=== PATIENT | female | born 1965 | race Caucasian/White ===

== ENCOUNTER → 2017-06-17 | Outpatient (CLI) | payer OTHER ==
[~2017-06-17] MED LIST: Z.0.NO CURRENT MEDS
--- NOTE | 2017-06-17 15:14 | RADRPT ---
EXAM DATE/TIME: 06/17/2017 14:37 [place] COMPARISON: No previous studies available for comparison. INDICATIONS : Evaluate for pneumonia, pneumothorax, or communicable disease. Pre-op hysterectomy MEDICAL HISTORY : None. SURGICAL HISTORY : None. ENCOUNTER: Initial ACUITY: 1 day PAIN SCORE: 0/10 LOCATION: Bilateral chest FINDINGS: PA and lateral views of the chest demonstrate the lungs to be symmetrically aerated without evidence of mass, infiltrate or effusion. The cardiomediastinal contours are unremarkable. Osseous structure s are intact. CONCLUSION: No acute disease. Isacc Lora MD on June 17, 2017 at 15:12 Board Certified Radiologist. This report was verified electronically.
--- NOTE | 2017-06-17 16:32 | EKG ---
Date Performed: 06/17/2017 Time Performed: 13:38:59 PTAGE: 51 years EKG: Sinus rhythm NONSPECIFIC T-WAVE ABNORMALITY BORDERLINE ECG PREVIOUS TRACING : 11/10/2012 14.22 Compared to previous tracing, nonspecific T wave changes ar e now present. DOCTOR: Jerry Mo Interpretating Date/Time 06/17/2017 16:30:12
== END ==
LOC: CPRE 13:19
PROVIDERS: ATTEND Obstetrics & Gynecology
DX: Z01.810 Encounter for preprocedural cardiovascular examination (principal); Z01.811 Encounter for preprocedural respiratory examination; Z01.812 Encounter for preprocedural laboratory examination; R93.8 Abnormal findings on diagnostic imaging of other specified body structures; N95.0 Postmenopausal bleeding; C50.919 Malignant neoplasm of unspecified site of unspecified female breast; R94.31 Abnormal electrocardiogram [ECG] [EKG]
CPT/HCPCS: 71046; 93005

== ENCOUNTER 2017-06-28 05:55 | Observation (INO) | payer OTHER ==
[~2017-06-28] VITALS: Ht 170.2 cm; Wt 85.5 kg
[2017-06-28] MEDS ORDERED: LACTATED RINGER'S 1000 ML IV PRN (06:30)
[2017-06-28] MEDS ORDERED: METOPROLOL TARTRATE 25 MG TAB PO PRN (06:30)
[2017-06-28] MEDS ORDERED: ceFAZolin 2 GM PREMIX 50 ML IV SCH (06:30)
[2017-06-28] MEDS ORDERED: SODIUM CHLORID 0.9% 500 ML IV PRN (06:30)
[2017-06-28] MEDS ORDERED: CHLORHEXIDINE GLUCONATE 2 % 1 PACK (2 CLOTHS) TOPICAL PRN (06:30)
[2017-06-28] MEDS ORDERED: POVIDONE IODINE 5% (ANTISEPSIS KIT) 4 APPLICATIONS EACH NARE PRN (06:30)
[2017-06-28] MEDS ORDERED: ACETAMINOPHEN 1000 MG/100 ML 100 ML IV ONE (06:59)
[2017-06-28] MEDS ORDERED: BUPIVACAINE HCL PF 0.25% 30 ML VIAL ONE (07:27)
[2017-06-28] MEDS ORDERED: MICROFIBRILLAR COLLAGEN HEMOSTAT 70 X 35 MM BANDAGE ONE (07:27)
[2017-06-28] MEDS ORDERED: BUPIVACAINE/EPINEPHRINE 0.25% 50 ML VIAL ONE (07:28)
[2017-06-28] MEDS ORDERED: DO NOT ADM ANY ANTICOAGULANT DRUGS PRN (09:55)
[2017-06-28] MEDS ORDERED: *MEPERIDINE 25 MG INJ VIAL PERIprocedural Use ONLY ONE (10:02)
[2017-06-28] MEDS ORDERED: MIDAZOLAM HCL 2 MG/2 ML VIAL ONE (10:03)
[2017-06-28] MEDS: LACTATED RINGER'S 1000 ML INJ 1,000 ML IV SCH ×3 (10:25→23:52)
[2017-06-28] MEDS ORDERED: diphenhydrAMINE HCL 50 MG/ML VIAL IV PUSH PRN (10:45)
[2017-06-28] MEDS ORDERED: SODIUM CHLORIDE 0.9% FLUSH 10 ML FLUSH IV FLUSH PRN (10:45)
[2017-06-28] MEDS ORDERED: NALOXONE HCL 0.4 MG/ML AMP IV PUSH PRN (10:45)
[2017-06-28] MEDS ORDERED: HYDROmorphone HCL PCA 6 MG/30 ML IV SCH (11:00)
[2017-06-28] MEDS: DOCUSATE SODIUM 100 MG CAP PO SCH ×2 (11:00→23:51)
[2017-06-28] MEDS ORDERED: ONDANSETRON HCL 4 MG/2 ML VIAL IVP PRN (11:00)
--- NOTE | 2017-06-28 11:01 | MP ---
cc: Renetta Wilson MD DATE OF OPERATION: 06/28/2017 PREOPERATIVE DIAGNOSES: Thickened endometrium, right adnexal mass. POSTOPERATIVE DIAGNOSES: Thickened endometrium, right adnexal mass. PROCEDURE: Examination under anesthesia, laparoscopic assisted vaginal hysterectomy, bilateral salpingo-oophorectomy, lysis of adhesions, cystoscopy. SURGEON: Renetta Wilson MD ANESTHESIA: General endotracheal anesthesia. FLUIDS: 1300 mL crystalloids ESTIMATED BLOOD LOSS: 50 mL URINE OUTPUT: 700 mL clear yellow at the end of the procedure FINDINGS: The uterus was approximately 10-12 weeks in size with several fibroids. There was a simple right paratubal cyst. Ovaries appeared normal. There were adhesions between the omentum and the right lower quadrant. PROCEDURE: The patient was taken to the operating room where general anesthesia was found to be adequate. She was then prepped and draped in the normal sterile fashion in the dorsal lithotomy position. A Laguerre catheter was inserted into the urinary bladder using sterile technique. A weighted speculum was placed in the vagina. A single-toothed tenaculum applied to the anterior lip of the cervix. The cervix was gently dilated with Osbaldo dilators. A suture was placed on the anterior lip of the cervix. The tenaculum was removed. A small VCare uterine manipulator was then placed through the cervix. The balloon was inflated. The cups were positioned. The speculum was removed. The gloves were changed and attention was turned to the abdominal portion of the procedure. A 5 mm incision and trocar were placed just above the umbilicus under direct visualization. The abdomen was insufflated with approximately 3-1/2 liters of CO2 gas. Two additional 5 mm trocars were placed in the right and left lower quadrants under direct visualization. The Harmonic scalpel was used to lyse the adhesions between the omentum and the right lower quadrant anterior abdominal wall. The round ligaments were transected bilaterally with the Harmonic scalpel. The bladder flap was created bilaterally using the Harmonic scalpel and the bladder was gently dissected off the anterior surface of the uterus and cervix. The infundibulopelvic ligaments were transected bilaterally with the Harmonic scalpel. The remaining broad ligaments, cardinal ligaments and uterine arteries were transected bilaterally with the Harmonic scalpel. An incision was then made circumferentially in the vaginal cuff with the Harmonic scalpel using the VCare as a guide freeing the uterus and cervix and this was then delivered vaginally. Hemostasis was noted from all of the pedicles. Suction irrigation was performed. The instruments were removed abdominally. The gas was allowed to escape. The trocars were removed. The skin incisions were closed with 4-0 Monocryl. The vaginal cuff was then closed in a running fashion with 0 Vicryl. Hemostasis was assured. The Laguerre catheter was used to instill approximately 250 mL of saline into the urinary bladder. The Laguerre catheter was removed. Cystoscopy was performed and urine was noted to be effluxing from both of the ureteral meatuses. The cystoscope was removed. The Laguerre catheter was replaced. The patient was awakened from anesthesia. Sponge, lap, needle and instrument counts were correct. The patient was transferred to the recovery room in stable condition. Pathology was uterus, cervix, bilateral fallopian tubes and bilateral ovaries. MD BREANNA Morfin/INOCENCIO/ , 09:59 AM , 10:30 AM
[2017-06-28 11:40] VITALS: BP 142/80; PULSE 76; RESP 18; TEMP 97.6
[2017-06-28] MEDS ORDERED: ROCURONIUM INJ 50 MG/5 ML SYRINGE IV PUSH ONE (12:00)
[2017-06-28] MEDS ORDERED: DEXAMETHASONE SOD PHOS 4 MG/ML VIAL IV ONE (12:00)
[2017-06-28] MEDS ORDERED: LACTATED RINGER'S 1000 ML INJ 1,000 ML IV ONE (12:00)
[2017-06-28] MEDS ORDERED: PROPOFOL 200 MG/20 ML AMP IV ONE (12:00)
[2017-06-28] MEDS ORDERED: NEOSTIGMINE 5 MG/5 ML SYRINGE IV PUSH ONE (12:00)
[2017-06-28] MEDS ORDERED: ONDANSETRON HCL 4 MG/2 ML VIAL IV ONE (12:00)
[2017-06-28] MEDS ORDERED: ePHEDrine/NS 25 MG/5 ML SYRINGE IV ONE (12:00)
[2017-06-28] MEDS ORDERED: LIDOCAINE HCL 1% PF 5 ML SYRINGE OTHER ONE (12:00)
[2017-06-28] MEDS ORDERED: GLYCOPYRROLATE 1 MG/5 ML SYRINGE IV PUSH ONE (12:00)
[2017-06-28] MEDS ORDERED: KETOROLAC TROMETHAMINE 30 MG/ML (IVP) VIAL IV PUSH ONE (12:00)
[2017-06-28] MEDS: PCA - TOTAL MG DILAUDID DELIVERED PER SHIFT OTHER SCH ×2 (14:00→21:37)
[2017-06-28] MEDS ORDERED: IBUPROFEN 600 MG TAB PO PRN (14:00)
[2017-06-28 16:00] VITALS: BP 121/68; PULSE 89; RESP 18; TEMP 98.2
[2017-06-28 20:00] VITALS: BP 145/77; PULSE 88; RESP 18; TEMP 98.4; O2SAT 95
[2017-06-28] MEDS ORDERED: SODIUM CHLORIDE 0.9% FLUSH 10 ML FLUSH IV FLUSH SCH (21:00)
[2017-06-28] MEDS ORDERED: ZOLPIDEM TARTRATE 5 MG TAB PO PRN (21:00)
[2017-06-29] VITALS: BP 121/67; PULSE 90; RESP 16; TEMP 99; O2SAT 96
[2017-06-29 05:00] VITALS: BP 135/89; PULSE 85; RESP 16; TEMP 98.4; O2SAT 95
[2017-06-29] MEDS: PCA - TOTAL MG DILAUDID DELIVERED PER SHIFT OTHER SCH (05:28)
[2017-06-29 05:51] LABS: AUTOMATED NEUTROPHIL # 7.8 TH/MM3 (1.8-7.7); BASOPHIL % 0.2 % (0.0-2.0); EOSINOPHIL % 0.3 % (0.0-4.0); HEMATOCRIT 39.2 % (35.0-46.0); HEMOGLOBIN 13.2 GM/DL (11.6-15.3); LYMPH % 19.3 % (9.0-44.0); MEAN CELL VOLUME 87.4 FL (80.0-100.0); MEAN CORPUSCULAR HEMOGLOBIN 29.5 PG (27.0-34.0); MEAN CORPUSCULAR HGB CONC 33.7 % (32.0-36.0); MEAN PLATELET VOLUME 9.4 FL (7.0-11.0); MONO % 6.4 % (0.0-8.0); MONOCYTE # 0.7 TH/MM3 (0-0.9); NEUT % 73.8 % (16.0-70.0); PLATELET COUNT 256 TH/MM3 (150-450); RED BLOOD COUNT 4.49 MIL/MM3 (4.00-5.30); RED CELL DISTRIBUTION WIDTH 13.1 % (11.6-17.2); WHITE BLOOD COUNT 10.5 TH/MM3 (4.0-11.0)
[2017-06-29] MEDS ORDERED: oxyCODONE/ACETAMINOPHEN 5 MG/325 MG TAB PO PRN ×2 (07:00)
--- NOTE | 2017-06-29 08:02 | HHI.PR ---
Subjective Remarks Doing well, pain is well controlled, eating well. Objective Vital Signs Vital Signs Date Time Temp Pulse Resp B/P (MAP) Pulse Ox O2 Delivery O2 Flow Rate FiO2 06/29/17 05:28 16 06/29/17 05:00 98.4 85 16 135/89 (104) 95 06/29/17 00:00 99.0 90 16 121/67 (85) 96 06/28/17 21:37 18 06/28/17 20:00 98.4 88 18 145/77 (99) 95 06/28/17 16:00 98.2 89 18 121/68 (85) 06/28/17 14:00 18 06/28/17 11:40 97.6 76 18 142/80 (100) 06/28/17 11:02 97.8 83 16 135/69 (91) 96 Room Air 06/28/17 10:54 14 06/28/17 10:45 71 16 136/71 (92) 98 Room Air 06/28/17 10:30 71 16 136/71 (92) 98 Room Air 06/28/17 10:15 82 16 140/72 (94) 100 Room Air 2 06/28/17 10:00 78 16 149/77 (101) 99 Room Air 2 06/28/17 09:55 98.0 80 16 155/102 (119) 92 Nasal Cannula 2 I/O 06/28/17 06/28/17 06/28/17 06/29/17 06/29/17 06/29/17 07:00 15:00 23:00 07:00 15:00 23:00 Intake Total 1500 ml 240 ml 1701 ml Output Total 1900 ml 700 ml 770 ml Balance -400 ml -460 ml 931 ml Intake Oral 240 ml IV Total 200 ml 1701 ml Other 1300 ml Output Urine Total 1850 ml 700 ml 770 ml Estimated Blood Loss 50 ml Result Diagram: 06/29/17 0514 Objective Remarks Chest is clear, regular rate and rhythm. Abdomen is soft and non-distended. Incisions are clean and dry. Ext no CCE. A/P Assessment and Plan Post Op Day 1 s/p LAVH/BSO Doing well Home today and return to office in two weeks. Renetta Wilson MD Jun 29, 2017 08:02
[2017-06-29] MEDS ORDERED: OXYC1TAB63 PO (08:06)
[2017-06-29] MEDS ORDERED: IBUP-232 PO (08:06)
--- NOTE | 2017-06-29 08:06 | HHI.DCPOC ---
Discharge Care Plan Your Health Problems Are: Pelvic pain Report Symptoms to Your Doctor -Temperature above 100.5 degrees -Redness, of incision or excessive or foul smelling drainage -Unusual pain or calf pain -Increased vaginal bleeding -Painful or difficulty urinating -Feelings of extreme sadness or anxiety after 2 weeks Goals to Promote Your Health * To prevent worsening of your condition and complications * To maintain your health at the optimal level Directions to Meet Your Goals Take your medications as prescribed Follow your dietary instruction Follow activity as directed Ensure plenty of rest for recovery Drink fluids for hydration Keep your appointments as scheduled Take your immunizations and boosters as scheduled If your symptoms worsen call your PCP, if no PCP go to Urgent Care Center or Emergency Room Smoking is Dangerous to Your Health. Avoid second hand smoke Call the 24-hour crisis hotline for domestic abuse at Renetta Wilson MD Jun 29, 2017 08:06
[2017-06-29 08:09] VITALS: BP 141/72; PULSE 80; RESP 18; TEMP 98
== END 2017-06-29 11:32 | disposition home or self-care (01) ==
LOC: HSDC 05:55 → HSDI 09:46 → H1EA 11:14
PROVIDERS: ADMIT Obstetrics & Gynecology; ATTEND Obstetrics & Gynecology
DX: N83.8 Other noninflammatory disorders of ovary, fallopian tube and broad ligament (principal); D25.9 Leiomyoma of uterus, unspecified; N83.02 Follicular cyst of left ovary; K66.0 Peritoneal adhesions (postprocedural) (postinfection)
CPT/HCPCS: 00840; 49329; 58552; 85025; 86850; 86900; 86901; 88307; 94150; G0378; J0131; J1100; J1170; J1885; J2175; J2250; J2405; J2710; J3010; J7120